=== PATIENT | male | born 1985 | race Caucasian/White ===

== ENCOUNTER → 2021-01-20 15:17 | Outpatient (CLI) | payer OTHER, SELFPAY | PROVIDERS: Visit Provider Physician Assistant Surgical | DX: U07.1 COVID-19 (principal); Z20.822 Contact with and (suspected) exposure to COVID-19 | CPT/HCPCS: 87635; U0005; U0003 ==

== ENCOUNTER → 2025-01-26 | Outpatient (CLI) | payer BC, SELFPAY ==
--- OUTSIDE RECORDS SUMMARY | 2025-01-26 12:27 | XMS RPT_ITS | CCD ---
Author Organization [place] [employer] Inform ion Partnership [facility] Care Team Providers Care Film Editor Name Role Phone Roof Cj CERVANTES Attending Unavailable Results Test Name Value Interpretation Reference Range Facil ity Office Visit Reporton 2022 Office Visit Report [facility] [address] [place] [address] OFFICE VISIT Date of Service: 11/22/22 MR#: [id number] Acct: [id number] Patient: ROSSY TAYLOR Rep #: [id number] : 1985 Provider: CORRINA oliver Age/Sex: 37/M Location: [facility] Status: Signed Intake Vital Signs 01/20/21 12:40 11/22/22 08:59 Height 6 ft 3 in 6 ft 3 in Weight: 290 lb BMI 36.2 BP 146/96 H Blood Pressure Location Lt brachial Position Sitting Respiration 16 Pulse 109 H Pulse Source Monitor Temp 98.4 F Temp Source Temporal Pulse Oximetry (%) 98 Oxygen Delivery Method room air Intake Visit Reasons: L EYE INFECTED Chief Complaint: LT eye pain poss foreign object in eye Social Sciences Professor Required: No Accompanied by: Self Is patient in pain?: Yes Pain scale (1-10): 3 Allergies No Known Allergies Allergy (Unverified 11/22/22 09:00) Nurse's Note: pt states that he feels like there is something in his left eye. Pt tried flushing out the eye with no success. HPI HPI Chief Complaint: LT eye pain poss foreign object in eye Details: ROSSY TAYLOR, is a 37 M who presents to the office today for left eye irritation. 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 He tried flushing when he took a shower. He states he woke this morning and it continued with irritation. He states blurry vision in left eye. He denies light flashing. He states light sensitivity that he states is baseline. He denies fever or chills. ROS Const Constitutional: Positive for other (See HPI) Exam Eyes General: appearance normal, both eyes and all related structures Visual Leyva: normal visual leyva by confrontation Alignment and Position: alignment normal, position normal and alignment abnormal Periorbital: periorbital findings normal Eyelids: eyelids normal (right) and eyelid abnormality left lower eyelid erythema Conjunctivae: conjunctivae normal Sclera: sclerae normal Cornea: corneas abnormal on the left foreign body (appears metal like, irrigated with normal saline with no success. ) metallic Pupils: PERRL EOM: EOM intact bilaterally Direct ophthalmoscopy: normal light reflex Coding Level of Care Code Off vis,est,level 2 Diagnoses Foreign body Assessment and Plan Assessment and Plan (1) Foreign body: Status: Acute Plan: This is noted in left eye. Irrigation was unsuccessful. Eye drops given to help. Normal saline eye irrigation was also given to patient to continue to irrigate eye on a regular basis. He was asked to see eye provider ANNIE for removal. He denies change in vision besides some blurriness that is better after irrigation. The discomfort is most noted when looking to the left. Medications: New polymyxin B sulf-trimethoprim 10,000 unit- 1 mg/mL while awake; do not exceed 6 doses in 24 hours 1 - 2 drps ophthalmic (eye) .Q3-6H 10 days 10 mL 0RF 11/22/22 0947 Date Cj Schwartz MANAGER CARDIOVASCULAR MANAGER CARDIOVASCULAR-C Cosigner Signature: Date (if applicable) CC: Normal [facility] Encounters Encounter Date Encounter Type Care Provider Facility Start: 11-22-2022 End: 11-22-2022 ambulatory Cj Schwartz NP Facility:[facility] Payers Date Payer Category Payer Self-pay 2022 Unknown [id number] Unknown [id number] Summary Purpose Family History No Family History Records Found Advance Directives No Advanced Directives Records Found Additional Source Comments (unrecognized sect ion and content) No Status Records Found INFORMATION SOURCE (unrecogn ized section and content) DATE CREATED AUTHOR 11/22/2022 [facility] FOR RECORDS PERTAINING TO PATIENTS WHO ARE OR HAVE BEEN ENROLLED IN A CHEMICAL DEPENDENCY/SUBSTANCEABUSE PROGRAM, SOME INFORMATION MAY BE OMITTED. This clinical summary was aggregated from multiple sources. Caution should be exercised in using it in the provision of clinical care. This summary normalizes information from multiple sources, and as a consequence, information in this document may materially change the coding, format and clinical context of patient data. In addition, data may be omitted in some cases. CLINICAL DECISIONS SHOULD BE BASED ON THE PRIMARY CLINICAL RECORDS. [employer] [facility]. provides no warranty or guarantee of the accuracy or completeness of information in this document.
[2025-01-26 15:16] LABS: Hematocrit 47.3 % (40-54); Hemoglobin 16.5 g/dL (13.0-16.5); Immature Granulocytes Count 0.030 X10^3/uL (0.0-0.0); Mean Corp Hgb Conc 34.9 g/dL (32-36); Mean Corpuscular Volume 87.3 fL (80-94); Mean Platelet Vol. 12.1 fl (6.2-12.0); NRBC Flagged by Analyzer 0 % (0-5); Platelet Count 219 K/mm3 (150-450); RBC Distribution Width CV 12.3 % (11.6-14.6); RBC Distribution Width SD 39.7 fl (35.1-43.9); Red Blood Count 5.42 M/mm3 (4.6-6.2); White Blood Count 10.9 K/mm3 (4.4-11.0)
[2025-01-26 15:52] LABS: AST(SGOT) 21 U/L (<=37); Alanine Aminotransfer ALT/SGPT 21 U/L (<=46); Albumin, Serum 4.7 g/dL (3.5-5.0); Alkaline Phosphatase 90 U/L (40-129); Anion Gap 13 (5-15); BUN 15 mg/dL (4-19); BUN/Creat Ratio 13.8 RATIO (10-20); Calcium,Total 9.6 mg/dL (7.6-11.0); Carbon Dioxide 22.1 mmol/L (21.0-32.0); Chloride 105 mmol/L (98-108); Cholesterol 176 mg/dL (<=200); Globulin 2.9 g/dL (2.2-4.2); Glucose 92 mg/dL (70-99); Low Density Lipoprotein Calc. 124 mg/dL; Magnesium 2.2 mg/dL (1.5-2.2); Potassium 4.0 mmol/L (3.3-5.1); Triglycerides 87 mg/dL; Very Low Density Lipoprotein 17 mg/dL (5-40); cholesterol:hdl ratio screen 5.01
== END | disposition home or self-care (01) ==
LOC: BFHLAB 12:09
PROVIDERS: PCP Family Medicine; Visit Provider Family Medicine
DX: I10 Essential (primary) hypertension (principal); E78.5 Hyperlipidemia, unspecified
CPT/HCPCS: 36415; 80053; 80061; 83735; 85025